=== PATIENT | female | born 1985 | race American Indian/Alaskan Native ===

== ENCOUNTER 2016-10-06 19:15 | Inpatient (IN) | payer OTHER ==
[~2016-10-06] VITALS: Ht 157.5 cm; Wt 75.0 kg
[~2016-10-06 19:15] MED LIST: CELEXA10 MG PO; CIPRO250 MG PO; LEVAQUIN500 MG PO; MIRENA1 EACH IY; NORCO 10-325 T1 EACH PO; NORCO 5-325 TA1 EACH PO; PRENATABS RX T1 EACH; PRENATAL 19 TA1 EAC1 PO; ZOLOFT50 MG PO
--- NOTE | 2016-10-07 11:58 | PR ---
[facility] [address] [facility] [place] [address] Signed PP Progress Notes Datetime Report Generated by CPN: 10/07/2016 11:58 SUBJECTIVE: [id number] Pain: Within normal limits Vital Signs: [id number] Vital Signs: Reviewed; Within Normal Limits EXAM: [id number] Cardiovascular: Not Done Respiratory: Not Done Abdomen/Uterus: Abnormal Lochia: Normal Vulva/Perineum: Not Done Breasts: Not Done CVA Tenderness: Not Done Extremities: Normal Incision: Not Applicable Progress: Normal Exam Comments: Fundus firm, NT @ U-1. IMPRESSION/PLAN/PROCEDURES: [id number] Impression: Normal progression Plan: Continue present management Progress Notes: Doing well. Will continue with current care. Signing Physician: Brianna Rowell MD CC: *Electronically Signed* 10/07/16 1158 BRIANNA ROWELL MD PATIENT NAME: RENA SUNSHINE PROGRESS NOTE DATE OF : 81 PHYSICIAN: BRIANNA ROWELL MD RPT #: [id number] REPORT IS CONFIDENTIAL AND NOT TO BE RELEASED WITHOUT AUTHORIZATION
--- NOTE | 2016-10-08 07:38 | PR ---
[facility] [address] [facility] [place] [address] Signed PP Progress Notes Datetime Report Generated by CPN: 10/08/2016 07:38 SUBJECTIVE: [id number] Pain: Within normal limits Vital Signs: [id number] Vital Signs: Reviewed; Within Normal Limits EXAM: [id number] Cardiovascular: Not Done Respiratory: Not Done Abdomen/Uterus: Abnormal Lochia: Normal Vulva/Perineum: Not Done Breasts: Not Done CVA Tenderness: Not Done Extremities: Normal Incision: Not Applicable Progress: Normal Exam Comments: Fundus firm, NT @ U-1. IMPRESSION/PLAN/PROCEDURES: [id number] Impression: Normal progression Plan: Discharge Progress Notes: Doing well. She is ready for D/C. Signing Physician: Brianna Rowell MD CC: *Electronically Signed* 10/08/16 0738 BRIANNA ROWELL MD PATIENT NAME: RENA SUNSHINE PROGRESS NOTE DATE OF : 81 PHYSICIAN: BRIANNA ROWELL MD RPT #: [id number] REPORT IS CONFIDENTIAL AND NOT TO BE RELEASED WITHOUT AUTHORIZATION
== END 2016-10-08 12:05 | disposition home or self-care (01) | DRG 775 ==
LOC: FBC 19:15
PROVIDERS: ADMIT Obstetrics & Gynecology
PROC: 10E0XZZ Delivery of Products of Conception, External Approach (ICD-10-PCS; principal; 2016-10-06)
PROC: 10907ZC Drainage of Amniotic Fluid, Therapeutic from Products of Conception, Via Natural or Artificial Opening (ICD-10-PCS; 2016-10-06)
DX: O80 Encounter for full-term uncomplicated delivery (principal); Z37.0 Single live birth; Z3A.38 38 weeks gestation of pregnancy
CPT/HCPCS: 85027; J2590; J7120

== ENCOUNTER 2020-08-11 07:32 | Emergency (ER) | payer OTHER ==
[~2020-08-11] VITALS: Ht 157.5 cm; Wt 65.3 kg
[2020-08-11] MEDS ORDERED: CEPHALEXIN500 M1 PO (08:29)
[2020-08-11] MEDS ORDERED: HYDROCODON-ACE1 EA10 PO (08:29)
== END 2020-08-11 08:35 | disposition home or self-care (01) ==
LOC: ED 07:32
DX: S61.341A Puncture wound with foreign body of left index finger with damage to nail, initial encounter (principal); W45.8XXA Other foreign body or object entering through skin, initial encounter; Z23 Encounter for immunization; Z87.891 Personal history of nicotine dependence
CPT/HCPCS: 64450; 73140; 90471; 90715; 99283-25

== ENCOUNTER 2024-12-25 08:50 | Emergency (ER) | payer OTHER ==
[~2024-12-25] VITALS: Ht 157.5 cm; Wt 60.0 kg
[~2024-12-25 08:50] MED LIST changes: +CEPHALEXIN500 M1 PO; +HYDROCODON-ACE1 EA10 PO
[2024-12-25 09:49] LABS: BASOPHILS 0.5 % (0.1-1.2); EOSINOPHILS 0.9 % (0.7-5.8); LYMPHOCYTES 27.6 % (19.3-51.7); MCH 32.8 PG (25.6-32.2); MCHC 34.2 g/dL (32.2-35.5); MCV 95.8 fL (79.4-94.8); MONOCYTES 8.5 % (4.7-12.5); NEUTROPHILS 62.1 % (34.0-71.1); RBC 4.00 M/uL (3.93-5.22)
[2024-12-25 10:03] LABS: ALT (SGPT) 22.0 U/L (14-59); AST (SGOT) 14.0 U/L (15-37); GLOMERULAR FILTRATION RATE,EST 86.0 mL/min (>60); PROTEIN, TOTAL 6.6 g/dL (6.4-8.2); UREA NITROGEN 19.0 mg/dL (7-18)
[2024-12-25] MEDS ORDERED: CEFAZOLIN SODIUM 2 GM in SODIUM CHLORIDE 0.9% 100 ML IV ONE (10:15)
[2024-12-25] MEDS ORDERED: BACTRIM DS TAB1 EACH PO (12:00)
[2024-12-25 12:27] VITALS: BP 113/81
== END 2024-12-25 12:28 | disposition home or self-care (01) ==
LOC: ED 08:50
PROVIDERS: Emergency Medicine
DX: L03.011 Cellulitis of right finger (principal); Z87.891 Personal history of nicotine dependence
CPT/HCPCS: 36415; 80053; 85025; 96365; 99283-25; J0688